=== PATIENT | female | born 1960 | race Caucasian/White ===

== ENCOUNTER 2018-02-05 20:56 | Emergency (ER) | payer OTHER ==
[~2018-02-05] VITALS: Ht 162.6 cm; Wt 79.5 kg
[~2018-02-05 20:56] MED LIST: BENA20TA14 PO; GLC500 PO; HYDC25 PO; MCR25 PO
[2018-02-05 21:07] VITALS: TEMP 37.2; Ht 162.6 cm; Wt 79.5 kg
--- NOTE | 2018-02-05 22:21 | DIAGNOSTIC IMAGING REPORT ---
R KNEE 3 VIEWS CLINICAL HISTORY: right knee pain, injury trauma COMPARISON: None. DISCUSSION: The bones and joint spaces appear intact. There is no evidence of fracture, dislocation or bony disease. There is no evidence for soft tissue swelling. IMPRESSION: Negative study. The above report was generated using voice recognition software. It may contain grammatical, syntax or spelling errors. Electronically signed by: Howard Costa M.D. 02/05/2018 10:20 PM Dictated Date/Time: 02/05/2018 10:19 PM
--- NOTE | 2018-02-05 22:58 | EMERGENCY ROOM VISIT NOTE ---
History First contact with patient: 21:15 Chief Complaint: KNEEPAIN Stated Complaint: RIGHT KNEE PAIN-WC History of Present Illness The patient is a 58 year old female who presents to the Emergency Room with complaints of right knee pain. The patient states that she was at work when she injured her knee. 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 She states that she was squatting down, then stood up and felt that her knee twisted and she heard a popping sensation in her knee. She states that she developed pain immediately afterward when walking. She states that her pain is an aching 7/10 pain but is worse with walking. She denies any history of issues with the knee. She has not taken any medications for the pain. She denies numbness or weakness. Review of Systems A complete 6 point review of systems was reviewed with the patient with pertinent positives and negatives as per history of present illness. All else were negative. Past Medical/Surgical History Medical Problems: (1) Diabetes mellitus, type II (2) Hypertension Social History Smoking Status: Never Smoker Housing Status: lives with family Current/Historical Medications Scheduled Benazepril (Lotensin), 20 MG PO DAILY Glyburide (Diabeta *), 2.5 MG PO DAILY Hydrochlorothiazide (Hctz *), 12.5 MG PO DAILY Metformin HCL (Glucophage *), 1,000 MG PO BID Physical Exam Vital Signs Date Time Temp Pulse Resp B/P (MAP) Pulse Ox O2 Delivery O2 Flow Rate FiO2 02/05/18 23:19 76 18 172/91 97 02/05/18 21:07 37.2 102 18 171/105 96 Room Air Physical Exam VITALS: Vitals are noted on the nurse's note and reviewed by myself. Vital signs stable. GENERAL: This is a 58-year-old female, in no acute distress, nondiaphoretic, well-developed well-nourished. SKIN: The skin was without rashes. MUSCULOSKELETAL: No deformity of the right knee. There is tenderness to palpation to the anterior/medial aspect of the right knee. Pain worsens with flexion and extension of the knee. Dorsalis pedis pulse 2+. No tenderness of the calf or distal tibia/fibula. NEURO: Patient was alert and oriented to person place and time. Medical Decision & Procedures ER Provider Diagnostic Interpretation: R KNEE 3 VIEWS CLINICAL HISTORY: right knee pain, injury trauma COMPARISON: None. DISCUSSION: The bones and joint spaces appear intact. There is no evidence of fracture, dislocation or bony disease. There is no evidence for soft tissue swelling. IMPRESSION: Negative study. Medications Administered Medications (Trade) Dose Ordered Sig/Prieto Route Start Time Stop Time Status Last Admin Dose Admin Acetaminophen (Tylenol Tab) 1,000 mg NOW STAT PO 02/05/18 22:59 02/05/18 23:01 DC 02/05/18 23:11 1,000 MG Medical Decision Differential diagnosis includes fracture, contusion, sprain, ligamentous injury , meniscal injury, among others. The patient was evaluated as above. X-ray of the right knee was obtained and read by radiology with no acute findings. Patient was advised to follow-up with orthopedics for further evaluation. Conservative measures were discussed. She was placed in an Jay wrap and declined crutches. She was given Tylenol for pain. She verbalized understanding of my assessment and treatment plan and was discharged home in good condition. Medication Reconcilliation Current Medication List: was personally reviewed by me Blood Pressure Screening Patient's blood pressure: Elevated blood pressure Blood pressure disposition: Elevated BP felt to be situational Impression Primary Impression: Right knee injury Departure Information Dispostion Home / Self-Care Condition GOOD Referrals No Doctor, Assigned (PCP) Seven Celestin M.D. Patient Instructions My [facility] Additional Instructions You have been treated in the Emergency Department for Knee Pain. For pain control, you can use the following [id number] medicines (if >12 yo): - Regular strength (325mg/tab) Tylenol (acetaminophen) 2 tabs every 4-6 hours as needed. Do not exceed 12 tablets in a 24 hour period. Avoid taking more than 4 grams (4000 mg) of Tylenol per day. This includes any other sources of acetaminophen you may take on a regular basis. - Regular strength (200 mg/tab) Advil (ibuprofen) 1-2 tabs every 4-6 hours as needed. Do not exceed a dose of 3200 mg per day. If this is a recent injury (<24 hrs), ice can be applied to the area of pain for the first 3 days to help decrease pain and inflammation. Ice massages can be performed by freezing water in a paper cup, peeling back the cup to expose the ice and then massaging over the affected area. You have been provided the number for an Orthopaedic Surgeon. You should call this number as soon as possible to establish a follow-up visit from today's Emergency Department visit. Return to the Emergency Department if your current symptoms worsen despite treatment course outlined above. Problem Qualifiers Primary Impression: Right knee injury Encounter type: initial encounter Qualified Codes: S89.91XA - Unspecified injury of right lower leg, initial encounter
[2018-02-05] MEDS ORDERED: ACETAMINOPHEN 500 MG TAB PO STA (22:59)
[2018-02-05 23:19] VITALS: BP 172/91; PULSE 76; O2SAT 97
== END 2018-02-05 23:15 | disposition home or self-care (01) ==
LOC: C.EDB 20:58 → C.EDD 23:15
DX: S89.91XA Unspecified injury of right lower leg, initial encounter (principal); X50.0XXA Overexertion from strenuous movement or load, initial encounter; R03.0 Elevated blood-pressure reading, without diagnosis of hypertension; E11.9 Type 2 diabetes mellitus without complications; I10 Essential (primary) hypertension; Z79.84 Long term (current) use of oral hypoglycemic drugs; Z79.899 Other long term (current) drug therapy